=== PATIENT | male | born 1955 | race Caucasian/White ===

== ENCOUNTER 2019-01-02 00:55 | Emergency (ER) | payer OTHER ==
[~2019-01-02] VITALS: Ht 172.7 cm; Wt 76.4 kg
[~2019-01-02 00:55] MED LIST: ACCU MC; LAC PO; LEVEMIR SQ; LEVO750T2 PO; LISI10TA11 PO; METF-988 PO; [UNRECOGNIZED DRUG - CODE]; [UNRECOGNIZED DRUG - CODE]; [UNRECOGNIZED DRUG - CODE]
[2019-01-02 01:07] VITALS: BP 154/86
--- NOTE | 2019-01-02 01:11 | NUR ---
PT AMBULATED TO BED 6.
--- NOTE | 2019-01-02 01:17 | NUR ---
PT PRESENTS TO ED WITH C/O OPEN WOUND TO RIGHT GREAT TOE, RIGHT 3RD TOE. PT STATES TOE PROBLEM HAS BEEN GOING ON FOR APPROXIMATELY 3 WEEKS. PT STATES THIS AFTERNOON HE BUMPED HIS GREAT RIGHT TOE AND TOENAIL RIPPED OFF. PT STATES HIS INGROWN TOENAIL ON GREAT TOE IS AFFECTING THIS 2ND AND 3RD TOES. TOES ARE SWOLLEN, ERYTHEMA AND OPEN WOUND NOTED TO GREAT TOE AND 3RD TOE. NO DRAINAGE PRESENT. PT DENIES PAIN AT THIS TIME. HX DM
[2019-01-02] MEDS ORDERED: NACL 0.9% 1,000 ML IV ONE (01:30)
[2019-01-02 02:14] LABS: BASOPHILS % (AUTO) 0.5 % (0.0-2.0); EOSINOPHILS # (AUTO) 0.1 K/uL (0-0.4); EOSINOPHILS % (AUTO) 2.2 % (0.0-4.0); HEMOGLOBIN 12.7 g/dL (12.0-18.0); LYMPHOCYTES # (AUTO) 1.6 K/uL (2.0-11.5); LYMPHOCYTES % (AUTO) 24.9 % (20.5-51.1); MEAN CORPUSCULAR HEMOGLOBIN 29 pg (27-31); MEAN CORPUSCULAR HGB CONC 34 g/dL (33-37); MEAN CORPUSCULAR VOLUME 85.6 fL (80-94); MONOCYTES # (AUTO) 0.5 K/uL (0.8-1.0); MONOCYTES % (AUTO) 8.6 % (1.7-9.3); NEUTROPHILS % (AUTO) 63.8 % (42.2-75.2); PLATELET COUNT (AUTO) 262 K/uL (140-450); RED BLOOD CELL COUNT(AUTO) 4.44 MIL/uL (4.20-6.10); WHITE BLOOD COUNT (AUTO) 6.2 K/uL (4.8-10.8)
[2019-01-02 02:32] LABS: ALBUMIN 2.6 g/dL (3.4-5.0); ANION GAP 10.7 (8-16); CARBON DIOXIDE 27.6 mmol/L (21-32); CREATININE 1.1 mg/dL (0.7-1.3); POTASSIUM 4.3 mmol/L (3.5-5.1); TOTAL BILIRUBIN 0.3 mg/dL (0.0-1.0)
--- NOTE | 2019-01-02 02:51 | NUR ---
CULTURE SWAB COLLECTED FROM RIGHT GREAT TOE, AWAITING LAB BROKERAGE MANAGER.
[2019-01-02] MEDS ORDERED: INSULIN REGULAR, HUMAN 100 UNIT/ML VIAL IVP ONE (03:00)
[2019-01-02] MEDS ORDERED: PIPERACILLIN/TAZOBACTAM 3.375 GM in DEXTROSE 5% 50 ML IV ONE (03:00)
[2019-01-02] MEDS ORDERED: PIPERACILLIN/TAZOBACTAM 3.375 GM VIAL IV ONE (03:15)
[2019-01-02] MEDS ORDERED: NACL 0.9% 1,000 ML IV SCH (03:44)
[2019-01-02] MEDS ORDERED: ACETAMINOPHEN 325 MG TAB PO PRN (03:45)
[2019-01-02] MEDS ORDERED: VANCOMYCIN PER PHARMACY MC PRN (03:45)
[2019-01-02] MEDS ORDERED: ONDANSETRON 4 MG/2 ML VIAL IVP PRN (03:45)
[2019-01-02] MEDS ORDERED: HYDROcodone/APAP 7.5/325 MG 1 TAB PO PRN (03:45)
[2019-01-02 04:09] LABS: PROTHROMBIN TIME 10.1 secs (10.8-13.4)
[2019-01-02] MEDS ORDERED: VANCOMYCIN 1GM/DEXT 5% PREMIX 200 ML IV ONE (04:10)
[2019-01-02] MEDS ORDERED: BACITRACIN OINT 15000 UNITS/30 GM TUBE TP STA (04:20)
[2019-01-02] MEDS ORDERED: VANCOMYCIN 1,000 MG VIAL ONE (04:26)
[2019-01-02 04:36] LABS: FREE T4 (FREE THYROXINE) 1.04 ng/dL (0.76-1.46); MAGNESIUM 2.3 mg/dL (1.8-2.4); PHOSPHORUS 3.1 mg/dL (2.5-4.9); THYROID STIMULATING HORMONE 1.08 uIU/mL (0.34-3.74)
--- NOTE | 2019-01-02 04:48 | NUR ---
PT LEFT AMA. Addendum: 01/05/19 at 0352 by Cabrera May RN PT LEFT FROM ED. PT NEVER ARRIVED ON THE FLOOR.
[2019-01-02] MEDS ORDERED: BACITRACIN OINT 15000 UNITS/30 GM TUBE TP SCH (04:50)
--- NOTE | 2019-01-02 04:52 | NUR ---
PT WOUND COVERED WITH NON ADHERENT DRESSING AND COFLEX TAPE. +CSM
--- NOTE | 2019-01-02 04:52 | NUR ---
BACITRACIN APPLIED TO AFFECTED PHALANAGES, NON ADHERENT DRESSING AND COFLEX. ACTIVE ROM. PEDIAL PULSE WNL. PT STATES 0/10 PAIN AT THIS TIME.
[2019-01-02] MEDS ORDERED: BACITRACIN OINT 500 UNITS/GM PKT TP ONE (04:54)
--- NOTE | 2019-01-02 04:55 | NUR ---
Patient discharged with v/s stable. Patient acting appropriatly, re-states he does not want to stay and wants to go home, states 0/10 pain at this time. Blood sugar 92 at this time. IV d/c PRESSURE AND BANDAGE APPLIED;TIP INTACT;BLEEDING CONTROLLED; SIGHT BENIGH. Written and verbal after care instructions given and explained. Patient alert, oriented and verbalized understanding of instructions. Ambulatory with steady gait. All questions addressed prior to discharge. ID band removed. Patient advised to follow up with PMD. Rx of Metformin, and Keflex given. Patient educated on indication of medication including possible reaction and side effects. Opportunity to ask questions provided and answered.
[2019-01-02 05:09] VITALS: BP 134/68
[2019-01-02] MEDS ORDERED: DOCUSATE SODIUM 100 MG GELCAP PO SCH (09:00)
== END 2019-01-02 04:39 | disposition left against medical advice (07) ==
LOC: MED 00:55 → UNDOADMIN 03:55 → MTU 03:55 → UNDODISIN 04:48
DX: E11.622 Type 2 diabetes mellitus with other skin ulcer (principal); L97.818 Non-pressure chronic ulcer of other part of right lower leg with other specified severity; I10 Essential (primary) hypertension; Z87.442 Personal history of urinary calculi; Z79.84 Long term (current) use of oral hypoglycemic drugs
CPT/HCPCS: 36415; 73660; 80053; 82150; 83036; 83605; 83690; 83735; 83880; 84100; 84439; 84443; 84484; 85025; 85610; 85651; 85730; 86140; 87040; 87070; 96365; 96375; 99284; J1815; J2543; J3370; J7030; Q0092

== ENCOUNTER 2019-04-17 00:42 | Inpatient (IN) | payer OTHER ==
[~2019-04-17] VITALS: Ht 172.7 cm; Wt 78.9 kg
[~2019-04-17 00:42] MED LIST changes: -ACCU MC; -LAC PO; -LEVEMIR SQ; -LEVO750T2 PO; -LISI10TA11 PO; -[UNRECOGNIZED DRUG - CODE]; -[UNRECOGNIZED DRUG - CODE]; -[UNRECOGNIZED DRUG - CODE]
[2019-04-17 00:48] VITALS: BP 170/90
--- NOTE | 2019-04-17 00:51 | NUR ---
TO LOBBY A/W BED AMBULATORY
--- NOTE | 2019-04-17 01:53 | NUR ---
PT TAKEN TO BED 6
--- NOTE | 2019-04-17 02:23 | NUR ---
63 YO M BIB SELF PRESENTS TO ED C/O DIABETIC ULCER TO TOES ON RIGHT FOOT. PT STATES WOUNDS STARTED TO APPEAR ABOUT X 1 WEEK AGO. PT STATES HE NOTICED FOULD ODOR AND WHITE DRAINAGE FROM FOOT STARTING TODAY. FIRST THREE DIGITS TO RIGHT FOOT HAVE NECROTIC TISSUE. RIGHT ANKLE AND FOOT APPEARS RED WITH MODERATE SWELLING. NO TOENAIL NOTED TO 2ND AND 3RD DIGIT. PT DENIES PAIN AND STATES HE HAS NEUROPATHY SO HE HAS LITTLE SENSATION IN HIS TOES. HE DOES ADMIT TO EXPERIENCING SPASMS THAT COME AND GO. PT DENIES FEVER, CHILLS BUT STATES HE WAKES UP DRENCHED IN SWEAT IN THE MORNING. DENIES NVD. -- PT AWAKE, ALERT, CALM, COOPERATIVE. ANSWERS QUESTIONS APPROPRIATELY. BEHAVIOR AGE APPROPRIATE. -- SKIN PINK, WARM, DRY. BREATHING EVEN, UNLABORED. PMH-- DIABETES RX-- METFORMIN
--- NOTE | 2019-04-17 02:28 | NUR ---
X-Ray at bedside.
--- NOTE | 2019-04-17 02:35 | NUR ---
LAB AT BEDSIDE.
[2019-04-17] MEDS ORDERED: METF500T PO (02:55)
[2019-04-17 02:56] LABS: ANION GAP 11.2 (8-16); CARBON DIOXIDE 29.2 mmol/L (21-32); CREATININE 1.3 mg/dL (0.7-1.3); POTASSIUM 4.4 mmol/L (3.5-5.1)
[2019-04-17 03:02] LABS: ALBUMIN 2.8 g/dL (3.4-5.0); TOTAL BILIRUBIN 0.5 mg/dL (0.0-1.0)
[2019-04-17 03:20] LABS: BASOPHILS % (AUTO) 0.4 % (0.0-2.0); EOSINOPHILS # (AUTO) 0.1 K/uL (0-0.4); EOSINOPHILS % (AUTO) 1.6 % (0.0-4.0); HEMATOCRIT 41.4 % (36-52); HEMOGLOBIN 13.6 g/dL (12.0-18.0); LYMPHOCYTES # (AUTO) 1.2 K/uL (2.0-11.5); LYMPHOCYTES % (AUTO) 16.7 % (20.5-51.1); MEAN CORPUSCULAR HEMOGLOBIN 28 pg (27-31); MEAN CORPUSCULAR HGB CONC 33 g/dL (33-37); MEAN CORPUSCULAR VOLUME 86.2 fL (80-94); MONOCYTES # (AUTO) 0.7 K/uL (0.8-1.0); MONOCYTES % (AUTO) 9.7 % (1.7-9.3); NEUTROPHILS % (AUTO) 71.6 % (42.2-75.2); PLATELET COUNT (AUTO) 279 K/uL (140-450); RED CELL DISTRIBUTION WIDTH 13.8 % (11.6-13.7); WHITE BLOOD COUNT (AUTO) 6.9 K/uL (4.8-10.8)
[2019-04-17] MEDS ORDERED: VANCOMYCIN 1,000 MG in DEXTROSE 5% 250 ML IV ONE (03:20)
[2019-04-17] MEDS ORDERED: VANCOMYCIN 1,000 MG VIAL ONE (03:30)
--- NOTE | 2019-04-17 03:30 | NUR ---
Patient appears to be resting comfortably in bed. Vital Signs within normal limits. Respirations even and unlabored. Addendum: 04/17/19 at 0522 by MED VANCOMYCIN INFUSING. NADR AT THIS TIME.
[2019-04-17] MEDS ORDERED: INSULIN REGULAR, HUMAN 100 UNIT/ML VIAL SUBQ ONE (04:00)
[2019-04-17] MEDS ORDERED: DEXT 5% /NACL 0.9% 1,000 ML IV SCH (04:23)
[2019-04-17] MEDS ORDERED: ONDANSETRON 4 MG/2 ML VIAL IM/IVP PRN (04:25)
[2019-04-17] MEDS ORDERED: ZOLPIDEM 5 MG TAB PO PRN (04:25)
[2019-04-17] MEDS ORDERED: ACETAMINOPHEN 325 MG TAB PO PRN (04:25)
[2019-04-17] MEDS ORDERED: LORazepam 2 MG/ML VIAL IM/IVP PRN (04:25)
[2019-04-17] MEDS ORDERED: MORPHINE SULFATE 2 MG/ML SYR IVP PRN (04:25)
[2019-04-17] MEDS ORDERED: DOCUSATE SODIUM 100 MG GELCAP PO PRN (04:25)
[2019-04-17] MEDS ORDERED: HYDROcodone/APAP 5/325 MG 1 TAB TAB PO PRN (04:25)
[2019-04-17] MEDS ORDERED: DEXTROSE 50% 50 ML SYR IVP PRN (04:25)
--- NOTE | 2019-04-17 04:50 | NUR ---
PT'S BP HIGH AT 177/82; INFORMED .DR Fermín HEWITT. SHE SAID SHE WILL ORDER LISINOPRIL FOR 0500AM
--- NOTE | 2019-04-17 04:53 | NUR ---
RECEIVED PT FROM ER VIA CHARISSE PT ABLE TO WALK ON HIS AFFECTED LEFT FOOT BUT W/ UNSTEADY GAIT. WITH LEFT HAND G 20, PATENT. WITH DIABETIC FOOT ULCER ON LEFT FOOT 1ST, 2ND AND 3RD TOE AFFECTED. PICTURE TAKEN AT ER. POC DISCUSSED. PT ORIENTED TO UNIT.CALL LIGHT W/IN REACH
--- NOTE | 2019-04-17 04:55 | NUR ---
Patient will be admitted to care of Dr. Anglin. Admited to TELE. Will go to room 111A. Belongings list completed. Report to BILLY Meade.
[2019-04-17] MEDS ORDERED: VANCOMYCIN PER PHARMACY MC PRN (05:00)
--- NOTE | 2019-04-17 05:00 | NUR ---
PT REFUSED TO BE CHANGED TO A YELLOW GOWN; EXPLAINED THE RISKS AND BENEFITS PT ACKNOWLEDGED . BUT WILL ENDORSE TO NEXT SHIFT TO TRY TO PUT HIM IN A YELLOW GOWN.
--- NOTE | 2019-04-17 05:00 | NUR ---
PT WANTS TO GO AMA BUT DR. HEWITT WENT TO THE PT AND TALKED TO HI, PER PT HE WANTS TO SEE HIS FOOT AND ANKLE SPECIALIST. DR. HEWITT EXPLAINED NEED TO HAVE IV ANTIBIOTICS AND BONE SCAN. FOR NOW PT STAYS ONLY UNTIL THE BONE SCAN.
--- NOTE | 2019-04-17 05:10 | NUR ---
INFORMED DR AU THAT PT REFUSED TO TAKE BP MEDICATION LISINOPRIL.WILL ENDORSE TO THE NEXT SHIFT .PT GIVEN EXPLANATION OF THE RISKS AND BENEFITS OF TAKING NOT TAKING THE BP MED. PT ACKNOWLEGED.
[2019-04-17] MEDS: LISINOPRIL 20 MG TAB PO SCH ×2 (05:20→09:25)
--- NOTE | 2019-04-17 06:11 | NUR ---
RETUIRNED THE LISINOPRIL AT THE [facility] NOW WILL ENDORSE TO NEXT SHIFT TO GIVE IT
--- NOTE | 2019-04-17 06:13 | NUR ---
PT BLOOD SUGAR TAKEN 248 WILL GIVE INSULIN PER PROTOCOL
[2019-04-17] MEDS: BLOOD GLUCOSE MONITORING 1 DEV DEV FS SCH ×4 (06:14→20:56)
[2019-04-17] MEDS: INSULIN LISPRO SLIDING SCALE 100 UNITS/ML VIAL SUBQ PRN ×3 (06:16→20:58)
--- NOTE | 2019-04-17 07:20 | NUR ---
Report received from night nurse, Pt awake a/o appropriate and able to communicate needs. Pt denies pain, denies n/v. Pt states he has hx of tingling to fingertips and decreased sensation to toes. Pt R toe has healed diabetic ulcer to R great toe and active diabetic ulcers to L toes, open to air. Call light and personal items within reach, safety and fall precautions in place, will continue to monitor.
[2019-04-17 07:23] LABS: PROTHROMBIN TIME 9.7 secs (10.8-13.4)
[2019-04-17 08:00] VITALS: BP 156/89
--- NOTE | 2019-04-17 08:30 | NUR ---
Spoke w nuclear med tech, per tech she will be here at 1430 to do bone scan.
--- NOTE | 2019-04-17 08:58 | NUR ---
PATIENT HAS BEEN SCREENED AND CATEGORIZED HIGH NUTRITION RISK. PATIENT WILL BE SEEN WITHIN 1-2 DAYS OF ADMISSION. 04/17/19-04/18/[address]
[2019-04-17] MEDS: LACTOBACILLUS RHAMNOSUS GG 1 EACH CAP PO SCH (09:25)
[2019-04-17 09:57] LABS: CHOL/HDL RATIO 3.1 (1-4.5); PHOSPHORUS 3.5 mg/dL (2.5-4.9); THYROID STIMULATING HORMONE 1.49 uIU/mL (0.34-3.74)
--- NOTE | 2019-04-17 10:00 | NUR ---
Pt remains a/o able to communicate needs and appropriate, visiting w family at bedside. Pt appears comfortable, denies pain, call light and personal items within reach, safety and fall precautions in place, no s/s of acute distress noted at this time, will continue to monitor.
--- NOTE | 2019-04-17 11:00 | NUR ---
PT. WAS SEEN BY WOUND CARE NURSE WITH LEFT FOOT FIRST 3 TOES CLEANSE AND DRESSED WITH BETADINE SOLUTION. PER PRIMARY RN PT. WAS SEEN BY PODIATRY THIS MORNING AND WILL PLAN FOR FURTHER TREATMENT.
--- NOTE | 2019-04-17 11:43 | NUR ---
Pt remains a/o able to communicate needs and appropriate, w family at bedside. Pt provided informed consent for bedside incision and drainage to L foot diabetic ulcers. Dr Garcia present at bedside and began Incision and drainage to L foot. Pt appears comfortable, denies pain, will continue to monitor.
--- NOTE | 2019-04-17 12:55 | NUR ---
sliding scale insulin held because Pt remains NPO.
--- NOTE | 2019-04-17 13:30 | NUR ---
Pt resting in bed at this time, appears comfortable, call light and personal items within reach, safety and fall precautions in place, no s/s of acute distress noted at this time, will continue to monitor.
--- NOTE | 2019-04-17 15:30 | NUR ---
Pt sleeping at this time, appears comfortable, call light and personal items within reach, safety and fall precautions in place, no s/s of acute distress noted at this time, will continue to monitor.
[2019-04-17] MEDS: VANCOMYCIN 750 MG in DEXTROSE 5% 250 ML IV SCH (15:31)
--- NOTE | 2019-04-17 15:35 | NUR ---
Spoke w Lauren in Radiology to follow up with Nuclear medicine time; waiting for time verification, charge nurse aware.
[2019-04-17 16:00] VITALS: BP 169/89
--- NOTE | 2019-04-17 16:00 | NUR ---
Pt remains a/o appropriate for age and able to communicate needs. Notified Pt per nuclear medicine, the exam will be done at 5:30 pm. Reinforced nwb education. Pt denies pain, dressing to L foot remains clean dry and intact, call light and personal items within reach, safety and fall precautions in place, no s/s of acute distress noted at this time, will continue to monitor.
--- NOTE | 2019-04-17 16:30 | NUR ---
Notified Dr Carrion of results to venous ultra sound and doppler, followed up on Pt diet; orders to be written.
--- NOTE | 2019-04-17 18:10 | NUR ---
Pt remains a/o appropriate, transported off unit to nuclear medicine study by w/c, non weight bearing maintained. Pt boot remains at bedside. No s/s of acute distress noted at this time.
--- NOTE | 2019-04-17 18:55 | NUR ---
Pt returned from nuclear med, remains a/o able to communicate need. denies pain at this time. call light and personal items within reach, safety and fall precautions in place, will continue to monitor.
--- NOTE | 2019-04-17 19:14 | NUR ---
Report endorsed to oncoming nurse. Pt sleeping at this time, appears comfortable, call light and personal items within reach, safety and fall precautions in place.
--- NOTE | 2019-04-17 19:30 | NUR ---
RECEIVED PT FROM AENL RN PT IS AAOX4 S/P LEFT IAND D LEFT FOOT IV ON LEFT ARM INFUSING WELL, LEFT FOOT ON PILLOW ELEVATION DENIES ANY PAIN AT THIS TIME INITIAL ASSESSMENT DONE
[2019-04-17 20:00] VITALS: BP 112/69
--- NOTE | 2019-04-17 21:00 | NUR ---
BLOOD SUGAR TEST 153 COVERAGE WITH 2 UNITS SUBQ HUMALOG FOLLOW PROTOCOL
[2019-04-17] MEDS: ATORVASTATIN 20 MG TAB PO SCH (21:24)
--- NOTE | 2019-04-17 23:10 | NUR ---
CRITICAL RAD WAS REPORTED TO DR SHARPE REPORT FROM NUCLEAR MEDICINE FINDING CONSISTENT WITH ACUTE OSTEOMYELITIS OF THE LEFT FIRST DISTAL PHALANX
[2019-04-18] MEDS: PIPERACILLIN/TAZOBACTAM 3.375 GM in DEXTROSE 5% 50 ML IV SCH ×5 (00:25→23:38)
[2019-04-18] MEDS ORDERED: PIPERACILLIN/TAZOBACTAM 3.375 GM VIAL IV ONE ×2 (00:26→05:26)
--- NOTE | 2019-04-18 02:00 | NUR ---
PT SLEEPING WELL NOT SIGNS OF PAIN NOTED , LEFT FOOT ON PILLOW ELEVATION
[2019-04-18] MEDS: VANCOMYCIN 750 MG in DEXTROSE 5% 250 ML IV SCH ×3 (02:40→23:52)
--- NOTE | 2019-04-18 04:00 | NUR ---
PT RESTING ON BED LEFT FOOT ON PILLOW ELEVATION, IV ON LEFT HAND INGUSING WELL NOT DISTRESS NOTED
[2019-04-18] MEDS: BLOOD GLUCOSE MONITORING 1 DEV DEV FS SCH ×4 (06:09→20:59)
[2019-04-18] MEDS: INSULIN LISPRO SLIDING SCALE 100 UNITS/ML VIAL SUBQ PRN ×3 (06:13→21:00)
--- NOTE | 2019-04-18 06:28 | NUR ---
BLOOD SUGAR TEST 351 COVERAGE WITH 10 UNITS SUBQ HUMALOG FOLLOW PROTOCOL , AND PT WILL BE MONITORING EN HALF HOUR
--- NOTE | 2019-04-18 06:31 | NUR ---
PT WILL BE ENDORSED TO DAY SHIFT NURSE FOR CONTINUITY OF CARE [id number]
[2019-04-18 07:00] LABS: ANION GAP 8.5 (8-16); CARBON DIOXIDE 29.7 mmol/L (21-32); CREATININE 1.3 mg/dL (0.7-1.3); POTASSIUM 4.2 mmol/L (3.5-5.1)
--- NOTE | 2019-04-18 07:02 | NUR ---
BLOOD SUGAR TEST MONITORING HALF HOUR AFTER GIVEN 10 UNITS SUBQ HUMALOG BS WAS [address] EVANS
[2019-04-18 07:13] LABS: BASOPHILS % (AUTO) 0.3 % (0.0-2.0); EOSINOPHILS # (AUTO) 0.2 K/uL (0-0.4); EOSINOPHILS % (AUTO) 2.2 % (0.0-4.0); HEMATOCRIT 36.1 % (36-52); HEMOGLOBIN 11.8 g/dL (12.0-18.0); LYMPHOCYTES # (AUTO) 1.3 K/uL (2.0-11.5); LYMPHOCYTES % (AUTO) 18.9 % (20.5-51.1); MEAN CORPUSCULAR HEMOGLOBIN 28 pg (27-31); MEAN CORPUSCULAR HGB CONC 33 g/dL (33-37); MEAN CORPUSCULAR VOLUME 86.3 fL (80-94); MONOCYTES # (AUTO) 0.6 K/uL (0.8-1.0); MONOCYTES % (AUTO) 9.5 % (1.7-9.3); NEUTROPHILS # (AUTO) 4.7 K/uL (1.8-7.7); NEUTROPHILS % (AUTO) 69.1 % (42.2-75.2); PLATELET COUNT (AUTO) 247 K/uL (140-450); RED BLOOD CELL COUNT(AUTO) 4.18 MIL/uL (4.20-6.10); RED CELL DISTRIBUTION WIDTH 13.4 % (11.6-13.7); WHITE BLOOD COUNT (AUTO) 6.8 K/uL (4.8-10.8)
[2019-04-18 07:14] LABS: MAGNESIUM 1.8 mg/dL (1.8-2.4); PHOSPHORUS 3.9 mg/dL (2.5-4.9)
--- NOTE | 2019-04-18 07:28 | NUR ---
GOT BEDSIDE REPORT FROM DECK ENGINEER NURSE. PATIENT ON MED SURGE FLOOR WITH STANDARD PRECAUTIONS IN PLACE. PATIENT AAOX4, ON ROOM AIR, NO DISTRESS NOTED. PATIENT AMBULATORY WITH SHOE FOR L FOOT AT BEDSIDE, L FOOT/TOES WRAPPED IN GAUZE AND KERLIX WRAP. DIABETIC FOOT ULCERS ON L FOOT 1ST, 2ND, AND 3RD DIGIT. BED IN LOW POSITION, CALL LIGHT WITHIN REACH, SIDE RAILS X2 UP
[2019-04-18 08:00] VITALS: BP 122/67
[2019-04-18] MEDS ORDERED: RIVAROXABAN 15 MG TAB PO SCH (09:00)
[2019-04-18 09:20] LABS: T4 (THYROXINE) 5.7 ug/dL (4.5-12.0)
[2019-04-18 09:35] LABS: BENZODIAZEPINE, URINE NEG. ng/mL (NEG <=200); CANNABINOID, URINE NEG. ng/mL (NEG <=50); COCAINE, URINE NEG. ng/mL (NEG <=300); OPIATE, URINE NEG. ng/mL (NEG <=2000); PHENCYCLIDINE SCREEN,URINE NEG. ng/mL (NEG <=25)
[2019-04-18 09:38] LABS: BILIRUBIN,URINE NEGATIVE (NEGATIVE); BLOOD, URINE 1+ (NEGATIVE); COLOR,URINE YELLOW (YELLOW); LEUKOCYTE ESTERASE ,URINE NEGATIVE (NEGATIVE); NITRITE, URINE NEGATIVE (NEGATIVE); UGLUCOSE 3+ (NEGATIVE)
[2019-04-18 09:40] LABS: BARBITURATE, URINE NEG. ng/ml (NEG <=200)
[2019-04-18] MEDS: LISINOPRIL 20 MG TAB PO SCH (09:55)
[2019-04-18] MEDS: ASPIRIN 81 MG TAB.CHEW PO SCH (09:55)
[2019-04-18] MEDS: LACTOBACILLUS RHAMNOSUS GG 1 EACH CAP PO SCH (09:55)
--- NOTE | 2019-04-18 09:59 | NUR ---
ADMINISTERED SCHEDULED MEDS. PATIENT TOLERATED WELL
[2019-04-18] MEDS: NACL 0.9% 1,000 ML IV SCH ×2 (10:07→23:11)
[2019-04-18 10:09] LABS: APPEARANCE,URINE CLEAR (CLEAR)
[2019-04-18 10:10] LABS: RBC,URINE 0-5 /HPF (0-5)
[2019-04-18] MEDS: metFORMIN 850 MG TAB PO SCH ×2 (12:00→17:34)
--- NOTE | 2019-04-18 12:37 | NUR ---
PATIENT WATCHING TV, ON ROOM AIR, NO DISTRESS NOTED
--- NOTE | 2019-04-18 13:38 | NUR ---
CALLED [facility] [phone] AND FAXED ALL PAPERWORK TO ALLIED FAX TO # [phone] FOR SNF PLACEMENT
--- NOTE | 2019-04-18 14:37 | NUR ---
PATIENT USING URINAL, ON ROOM AIR, NO DISTRESS NOTED
--- NOTE | 2019-04-18 15:00 | NUR ---
04/18/19 RD INITIAL ASSESSMENT COMPLETED PLEASE REFER TO NUTRITION ASSESSMENT UNDER CARE ACTIVITY FOR ESTIMATED NUTRITIONAL NEEDS. 1. CONTINUE CCHO 60 GM DIET TOLERATED 2. DOUBLE PORTIONS OF PROTEIN WILL BE PROVIDED FOR EACH MEAL 3. RD PROVIDED DIABETES NUTRITION EDUCATION ON A CONSISTENT CARBOHYDRATE DIET 4. RD TO FOLLOW-UP 5-7 DAYS, LOW RISK PHOEBE [facility]ERETT, RD
--- NOTE | 2019-04-18 15:19 | NUR ---
RECEIVED A CALL FROM [facility] JENIFER [phone] WILL FAX AND E MAIL THE LIST OF CONTRACTED FACILITY.
--- NOTE | 2019-04-18 15:45 | NUR ---
CHANGED DRESSING ON LEFT FOOT ORDERED. PATIENT TOLERATED WELL, HE STATED HE CANNOT FEEL HIS FOOT
[2019-04-18 16:00] VITALS: BP 167/75
--- NOTE | 2019-04-18 19:28 | NUR ---
GAVE BEDSIDE REPORT TO MASTER COSMETOLOGIST NURSE. PATIENT ENDORSED IN STABLE CONDITION
--- NOTE | 2019-04-18 19:30 | NUR ---
RECEIVED PT FROM PATO RN PT AAOX4 ON LEFT FOOT DRESSING DRY AND INTACT ON PILLOW ELEVATION IV ON LEFT HAND INFUSING WELL INITIAL ASSESSMENT DONE
[2019-04-18] MEDS: ATORVASTATIN 20 MG TAB PO SCH (21:17)
--- NOTE | 2019-04-18 21:30 | NUR ---
BLOOD SUGAR [id number] COVERAGE WITH4 UNITS SUBQ HUMALOG FOLLOW PROTOCOL
--- NOTE | 2019-04-18 22:30 | NUR ---
PICC LINE NURSE INSERT PICC LINE ON RT UPPER ARM
[2019-04-19] VITALS: BP 118/67
--- NOTE | 2019-04-19 00:17 | NUR ---
PT SLEEPING WELL NOT DISTESS NOTED NPO FOR PROCEDURE THIS AM
--- NOTE | 2019-04-19 03:00 | NUR ---
PT SLEEPING WELL NOT SIGNS OF PAIN NOTED, PICC LINE ON RT UPPER ARM AND HL ON LEFT HAND PATENT
[2019-04-19] MEDS: PIPERACILLIN/TAZOBACTAM 3.375 GM in DEXTROSE 5% 50 ML IV SCH ×4 (05:32→23:32)
--- NOTE | 2019-04-19 05:45 | NUR ---
SURGICAL LIST READY, CONSENT SIGNED FOR SURGERY THIS AM
[2019-04-19] MEDS: BLOOD GLUCOSE MONITORING 1 DEV DEV FS SCH ×4 (05:47→20:49)
--- NOTE | 2019-04-19 06:01 | NUR ---
BLOOD SUGAR TEST 258 NOT COVERAGE AT THIS TIME PT NPO AND HE IS GOING TO SURGERY THIS AM/,
--- NOTE | 2019-04-19 06:41 | NUR ---
PT WILLBE ENDORSED TO DAY SHIFT NURSE FOR CONTINUE OF CARE
--- NOTE | 2019-04-19 07:15 | NUR ---
RECEIVED REPORT FROM REPLENISHMENT MERCHANDISING ASSOCIATE NURSE CHARY FOR CONTINUITY OF CARE. PT IN STABLE CONDITION. RESPIRATIONS EVEN AND UNLABORED, ROOM AIR. IV/PICC LINE INTACT AND PATENT. SAFETY MEASURES IN PLACE. BED IN LOW POSITION. BED ALARM ON. CALL LIGHT AT BEDSIDE. WILL CONTINUE TO MONITOR.
[2019-04-19 07:30] LABS: BASOPHILS % (AUTO) 0.3 % (0.0-2.0); EOSINOPHILS # (AUTO) 0.2 K/uL (0-0.4); EOSINOPHILS % (AUTO) 2.7 % (0.0-4.0); HEMOGLOBIN 12.4 g/dL (12.0-18.0); LYMPHOCYTES % (AUTO) 16.8 % (20.5-51.1); MEAN CORPUSCULAR HEMOGLOBIN 29 pg (27-31); MEAN CORPUSCULAR HGB CONC 33 g/dL (33-37); MEAN CORPUSCULAR VOLUME 85.6 fL (80-94); MONOCYTES # (AUTO) 0.5 K/uL (0.8-1.0); MONOCYTES % (AUTO) 7.6 % (1.7-9.3); NEUTROPHILS # (AUTO) 4.4 K/uL (1.8-7.7); NEUTROPHILS % (AUTO) 72.6 % (42.2-75.2); PLATELET COUNT (AUTO) 267 K/uL (140-450); RED BLOOD CELL COUNT(AUTO) 4.33 MIL/uL (4.20-6.10); RED CELL DISTRIBUTION WIDTH 13.6 % (11.6-13.7); WHITE BLOOD COUNT (AUTO) 6.1 K/uL (4.8-10.8)
[2019-04-19 07:37] LABS: CARBON DIOXIDE 29.1 mmol/L (21-32); CREATININE 1.1 mg/dL (0.7-1.3); POTASSIUM 4.1 mmol/L (3.5-5.1)
[2019-04-19 08:00] VITALS: BP 163/84
[2019-04-19] MEDS: metFORMIN 850 MG TAB PO SCH (08:00)
[2019-04-19] MEDS: VANCOMYCIN 750 MG in DEXTROSE 5% 250 ML IV SCH ×3 (08:24→23:32)
[2019-04-19] MEDS: INSULIN LANTUS 100 UNITS/ML 10 ML VIAL SUBQ SCH ×2 (09:00→12:04)
[2019-04-19] MEDS: ASPIRIN 81 MG TAB.CHEW PO SCH (09:00)
[2019-04-19] MEDS ORDERED: LACTOBACILLUS RHAMNOSUS GG 1 EACH CAP PO SCH (09:00)
[2019-04-19] MEDS: LISINOPRIL 20 MG TAB PO SCH (09:00)
[2019-04-19] MEDS: LACTOBACILLUS RHAMNOSUS GG 1 EACH CAP PO SCH (09:00)
--- NOTE | 2019-04-19 09:18 | NUR ---
HELD HEPARIN AND INSULIN LANTUS DUE TO SURGERY.
[2019-04-19] MEDS: CHLORHEXADINE GLUC 2% CLOTH TP SCH (09:33)
--- NOTE | 2019-04-19 11:30 | NUR ---
PT WANTED TO PUT ON OWN SHIRT AT THIS TIME. FAMILY AT BEDSIDE. PT IN STABLE CONDITION. BED IN LOW POSITION. CALL LIGHT AT BEDSIDE. WILL CONTINUE TO MONITOR.
[2019-04-19] MEDS: NACL 0.9% 1,000 ML IV SCH ×2 (12:45→21:32)
--- NOTE | 2019-04-19 12:52 | NUR ---
PODIATRY DR. HENRY AT BEDSIDE AT THIS TIME. PT IN STABLE CONDITION.
--- NOTE | 2019-04-19 15:07 | NUR ---
PT ASSISTED TO RESTROOM AT THIS TIME. PT TOLERATED WELL. WILL CONTINUE TO MONITOR.
--- NOTE | 2019-04-19 16:13 | NUR ---
SW attempted to conduct assessment with patient. Patient was asleep and would not respond to verbal cues. SW will follow up.
--- NOTE | 2019-04-19 17:50 | NUR ---
GAVE DR. HENRY (PODIATRY),PT DAUGHTERS PHONE NUMBER ([phone]) TO CALL PER REQUEST.
[2019-04-19] MEDS: INSULIN LISPRO SLIDING SCALE 100 UNITS/ML VIAL SUBQ PRN ×2 (17:57→20:51)
--- NOTE | 2019-04-19 19:25 | NUR ---
GAVE REPORT TO AIR BRAKE WORKER NURSE VASQUEZ FOR CONTINUITY OF CARE. PT IN STABLE CONDITION.
--- NOTE | 2019-04-19 19:30 | NUR ---
RECEIVED BEDSIDE REPORT FROM DAY RN. PT IS AAOX4. ON ROOM AIR. IV ON L HAND 22G IVF INFUSING PER ORDERS. PICC DOUBLE LUMEN ON R UPPER ARM SL. L FOOT IS WRAPPED DRESSING CHANGE DONE AT 1800 DRESSING IS C/D/I. CONSENT IN CHART FOR TOE AMPUTATION TOMORROW 04/20 ORDER FOR NPO AFTER MIDNIGHT PT IS AWARE SIGN ON DOOR. URINAL AND ALL BELONGING BY BEDSIDE TABLE. PLAN OF CARE DISCUSSED WITH PT. CALL LIGHT IS WITHIN REACH. WILL CONTINUE TO MONITOR.
[2019-04-19] MEDS: ATORVASTATIN 20 MG TAB PO SCH (20:50)
--- NOTE | 2019-04-19 20:50 | NUR ---
SCHEDULED MEDICATION GIVEN HEPARIN HELD D/T SURGERY TOMORROW. INSULIN 4 UNITS BLOOD SUGAR 221. PT REQUEST SANDWICH BEFORE NPO SANDWICH GIVEN. CALL LIGHT IS WITHIN REACH.
[2019-04-19] MEDS ORDERED: metFORMIN 850 MG TAB PO SCH (21:00)
--- NOTE | 2019-04-19 21:00 | NUR ---
PT EXPRESSED HE DOES NOT WANT SURGERY ANYMORE AND IS THINKING ABOUT GOING HOME TONIGHT. EXPLAINED TO PATIENT RISK OF NOT HAVING SURGERY. PAGED DR MENDEZ TO SPEAK WITH PT. DOCTOR NOW IN ROOM SPEAKING WITH PATIENT. WILL CONTINUE TO MONITOR.
--- NOTE | 2019-04-19 21:15 | NUR ---
IV INFILTRATED ON L HAND. IV REMOVED IV IS INTACT. IVF CONNECTED ON PICC LINE. NO S/S OF DISTRESS. CALL LIGHT IS WITHIN REACH. WILL CONTINUE TO MONITOR.
--- NOTE | 2019-04-19 23:50 | NUR ---
VITAL SIGNS ARE WITHIN NORMAL LIMITS. NO S/S OF DISTRESS. ZOSYN IS INFUSING PER ORDERS. CALL LIGHT IS WITHIN REACH.
--- NOTE | 2019-04-20 02:30 | NUR ---
PATIENT IS ASLEEP. CHEST RISE AND FALL. CALL LIGHT IS WITHIN REACH. WILL CONTINUE TO MONITOR.
--- NOTE | 2019-04-20 04:00 | NUR ---
PATIENT IS ASLEEP. CHEST RISE AND FALL. CALL LIGHT IS WITHIN REACH. WILL CONTINUE TO MONITOR.
[2019-04-20] MEDS: PIPERACILLIN/TAZOBACTAM 3.375 GM in DEXTROSE 5% 50 ML IV SCH ×4 (05:47→23:33)
[2019-04-20] MEDS: BLOOD GLUCOSE MONITORING 1 DEV DEV FS SCH ×4 (05:50→20:31)
--- NOTE | 2019-04-20 05:57 | NUR ---
ZOSYN NOW INFUSING PER ORDERS. BG 258 WILL HOLD INSULIN PT IS TO BE NPO FOR SURGERY TODAY. ALL SAFETY MEASURES ARE IN PLACE. WILL CONTINUE TO MONITOR. PT IN STABLE CONDITION
--- NOTE | 2019-04-20 07:10 | NUR ---
RECEIVED REPORT FROM CLEANING AND WASHING EQUIPMENT OPERATOR NURSE IVANA FOR CONTINUITY OF CARE. PT IN STABLE CONDITION. PICC LINE INTACT AND PATENT. RESPIRATIONS EVEN AND UNLABORED, ROOM AIR. SAFETY MEASURES IN PLACE. BED IN LOW POSITION. BED ALARM ON. CALL LIGHT AT BEDSIDE. WILL CONTINUE TO MONITOR.
[2019-04-20 07:21] LABS: ANION GAP 11.2 (8-16); BASOPHILS % (AUTO) 0.4 % (0.0-2.0); CREATININE 1.3 mg/dL (0.7-1.3); EOSINOPHILS # (AUTO) 0.1 K/uL (0-0.4); EOSINOPHILS % (AUTO) 1.5 % (0.0-4.0); HEMATOCRIT 35.9 % (36-52); HEMOGLOBIN 11.8 g/dL (12.0-18.0); LYMPHOCYTES # (AUTO) 1.2 K/uL (2.0-11.5); MEAN CORPUSCULAR HEMOGLOBIN 28 pg (27-31); MEAN CORPUSCULAR HGB CONC 33 g/dL (33-37); MONOCYTES # (AUTO) 0.6 K/uL (0.8-1.0); MONOCYTES % (AUTO) 8.1 % (1.7-9.3); NEUTROPHILS # (AUTO) 5.5 K/uL (1.8-7.7); PLATELET COUNT (AUTO) 250 K/uL (140-450); POTASSIUM 4.2 mmol/L (3.5-5.1); RED BLOOD CELL COUNT(AUTO) 4.17 MIL/uL (4.20-6.10); RED CELL DISTRIBUTION WIDTH 13.7 % (11.6-13.7); WHITE BLOOD COUNT (AUTO) 7.4 K/uL (4.8-10.8)
[2019-04-20 07:27] LABS: PHOSPHORUS 3.7 mg/dL (2.5-4.9)
[2019-04-20 08:00] VITALS: BP 165/83
[2019-04-20] MEDS ORDERED: VANCOMYCIN PER PHARMACY MC PRN (08:00)
[2019-04-20] MEDS: VANCOMYCIN 750 MG in DEXTROSE 5% 250 ML IV SCH (08:19)
[2019-04-20] MEDS: LISINOPRIL 20 MG TAB PO SCH (09:00)
[2019-04-20] MEDS: metFORMIN 500 MG TAB PO SCH ×2 (09:00→20:32)
[2019-04-20] MEDS: ASPIRIN 81 MG TAB.CHEW PO SCH (09:00)
[2019-04-20] MEDS: LACTOBACILLUS RHAMNOSUS GG 1 EACH CAP PO SCH (09:00)
[2019-04-20] MEDS: INSULIN LANTUS 100 UNITS/ML 10 ML VIAL SUBQ SCH (09:00)
--- NOTE | 2019-04-20 09:04 | NUR ---
HELD HEPARIN INJ AND LANTUS 20UNITS DUE TO 1200 SURGERY. PT IN STABLE CONDITION.
[2019-04-20] MEDS: CHLORHEXADINE GLUC 2% CLOTH TP SCH (09:35)
--- NOTE | 2019-04-20 11:35 | NUR ---
PT OFF UNIT FOR LEFT FOOT TOE, 1ST DIGIT/ PARTIAL 3RD DIGIT AMPUTATION SURGERY
[2019-04-20] MEDS ORDERED: PROPOFOL 200 MG/20 ML VIAL IV ONE (11:45)
[2019-04-20] MEDS ORDERED: SEVOFLURANE 250 ML BTL INH ONE (11:45)
[2019-04-20] MEDS ORDERED: BUPIVACAINE-MPF 0.5% 30 ML VIAL INJ ONE (11:53)
[2019-04-20] MEDS ORDERED: fentaNYL 0.05 MG/ML VIAL ONE (12:09)
[2019-04-20] MEDS ORDERED: MIDAZOLAM 2 MG/2 ML VIAL ONE (12:09)
[2019-04-20] MEDS: NACL 0.9% 1,000 ML IV SCH ×3 (12:21→20:41)
[2019-04-20] MEDS ORDERED: ONDANSETRON 4 MG/2 ML VIAL IVP PRN (12:25)
[2019-04-20] MEDS ORDERED: HYDROmorphone 1 MG/ML AMP IVP PRN (12:25)
[2019-04-20] MEDS ORDERED: diphenhydrAMINE 50 MG/ML VIAL IVP PRN (12:25)
[2019-04-20] MEDS: INSULIN LISPRO SLIDING SCALE 100 UNITS/ML VIAL SUBQ PRN ×2 (12:51→20:35)
--- NOTE | 2019-04-20 13:40 | NUR ---
PT BACK ON UNIT AFTER SURGERY. PT IN STABLE CONDITION.
--- NOTE | 2019-04-20 15:02 | NUR ---
PT SLEEPING AT THIS TIME. RESPIRATIONS EVEN AND UNLABORED. BED IN LOW POSITION. BED ALARM ON. CALL LIGHT AT BEDSIDE. FAMILY AT BEDSIDE. WILL CONTINUE TO MONITOR.
--- NOTE | 2019-04-20 15:08 | NUR ---
CALLED PATIENT INSURANCE AT [phone], LEFT MESSAGE TO JENIFER SHEPPARD AT EXT [phone]. AWAITING FOR CALL BACK.
--- NOTE | 2019-04-20 15:43 | NUR ---
RECEIVED A CALL FROM JENIFER SHEPPARD OF [facility] AT [phone], REGARDING UPDATE ON DC PLANNING. INFORMED HER THAT THE PATIENT HAD HIS AMPUTATION DONE TODAY AND THE PLAN IS TO DC PATIENT WITH HOME HEALTH FOR IV ANTIBIOTICS. AND IF THERE WILL BE ANY CHANGES, I WILL BE UPDATING HER. I PROVIDED HER WITH MY CONTACT INFORMATION IF SHE HAS ANY CONCERNS OR QUESTIONS
--- NOTE | 2019-04-20 15:51 | NUR ---
CRITICAL RESULT. VANCO 18.5. PHARMACY WILL HOLD 1600 VANCO. IS AWARE. YEMI SCHEDULED FOR 1999
--- NOTE | 2019-04-20 16:45 | NUR ---
AWAKE AND ALERT NO SOB NOTED PATIENT REFUSING TO PARTICIPATE IN THE INCENTIVE SPIROMETRY THERAPY PATIENT STATES "NO I DON'T WANT TO DO IT".
--- NOTE | 2019-04-20 17:12 | NUR ---
ASSISTED WITH BEDSIDE COMMODE. PT TOLERATED WELL.
--- NOTE | 2019-04-20 19:15 | NUR ---
GAVE REPORT TO SANE NURSE NURSE FOR CONTINUITY OF CARE. PT IN STABLE CONDITION.
--- NOTE | 2019-04-20 19:16 | NUR ---
RECEIVED REPORT FROM DAY SHIFT NURSE JENIFER-RN AT BEDSIDE. PT RESTING IN BED, AOX4, ON ROOM AIR WITH PICC RIGHT UPPER ARM RUNNING NS @75ML/HR. DISCUSSED PLAN OF CARE AND PT VERBALIZED UNDERSTANDING. NO S/S OF RESPIRATORY DISTRESS OR DISCOMFORT NOTED AT THIS TIME. S/P DEBRIDEMENT 04/17 AND AMPUTATION OF FIRST DIGIT AND PARTIAL OF THIRD DIGIT BY DR. OSORIO ON 04/20. BED IN LOWEST POSITION, BED BREAKS ON, BOTH SIDE RAILS UP AND FALL PRECAUTIONS IN PLACE. BEDSIDE TABLE AND CALL LIGHT ARE WITHIN REACH. WILL CONTINUE TO MONITOR.
[2019-04-20 20:00] VITALS: BP 150/72
--- NOTE | 2019-04-20 20:00 | NUR ---
VITAL SIGNS TAKEN AND TOLERATED WELL. BLOOD GLUCOSE 175- WILL ADMINISTER INSULIN COVERAGE. NO S/S OF RESPIRATORY DISTRESS OR DISCOMFORT NOTED AT THIS TIME. WILL CONTINUE TO MONITOR.
[2019-04-20] MEDS: VANCOMYCIN 1,000 MG in DEXTROSE 5% 250 ML IV SCH (20:31)
[2019-04-20] MEDS: ATORVASTATIN 20 MG TAB PO SCH (20:32)
--- NOTE | 2019-04-20 20:35 | NUR ---
SCHEDULED MEDICATIONS GIVEN AND TOLERATED WELL. INSULIN COVERAGE GIVEN AND TOLERATED WELL. NO S/S OF RESPIRATORY DISTRESS OR DISCOMFORT NOTED AT THIS TIME. WILL CONTINUE TO MONITOR.
--- NOTE | 2019-04-20 22:00 | NUR ---
PT SLEEPING IN BED. NO S/S OF RESPIRATORY DISTRESS OR DISCOMFORT NOTED AT THIS TIME. WILL CONTINUE TO MONITOR.
--- NOTE | 2019-04-20 23:33 | NUR ---
SCHEDULED MEDICATION ZOSYN GIVEN AND TOLERATED WELL. NO S/S OF RESPIRATORY DISTRESS OR DISCOMFORT NOTED AT THIS TIME. WILL CONTINUE TO MONITOR.
[2019-04-21] VITALS: BP 142/72
--- NOTE | 2019-04-21 | NUR ---
VITAL SIGNS TAKEN AND TOLERATED WELL. NO S/S OF RESPIRATORY DISTRESS OR DISCOMFORT NOTED AT THIS TIME. WILL CONTINUE TO MONITOR.
[2019-04-21] MEDS: NACL 0.9% 1,000 ML IV SCH ×3 (01:50→18:07)
--- NOTE | 2019-04-21 02:00 | NUR ---
PT CONTINUES SLEEPING IN BED. NO S/S OF RESPIRATORY DISTRESS OR DISCOMFORT NOTED AT THIS TIME. WILL CONTINUE TO MONITOR.
--- NOTE | 2019-04-21 04:00 | NUR ---
PT CONTINUES TO SLEEP IN BED. NO S/S OF RESPIRATORY DISTRESS OR DISCOMFORT NOTED AT THIS TIME. WILL CONTINUE TO MONITOR.
[2019-04-21] MEDS: PIPERACILLIN/TAZOBACTAM 3.375 GM in DEXTROSE 5% 50 ML IV SCH ×4 (05:00→23:29)
--- NOTE | 2019-04-21 05:00 | NUR ---
PT C/O HEADACHE AND TYLENOL WAS GIVEN AND TOLERATED WELL. SCHEDULED MEDICATION ZOSYN GIVEN AND TOLERATED WELL. NO S/S OF RESPIRATORY DISTRESS OR DISCOMFORT NOTED AT THIS TIME. WILL CONTINUE TO MONITOR.
[2019-04-21] MEDS: BLOOD GLUCOSE MONITORING 1 DEV DEV FS SCH ×4 (06:57→20:28)
[2019-04-21] MEDS: INSULIN LISPRO SLIDING SCALE 100 UNITS/ML VIAL SUBQ PRN ×3 (07:00→17:31)
--- NOTE | 2019-04-21 07:00 | NUR ---
BLOOD GLUCOSE 186- INSULIN COVERAGE GIVEN AND TOLERATED WELL. NO S/S OF RESPIRATORY DISTRESS OR DISCOMFORT NOTED AT THIS TIME. WILL CONTINUE TO MONITOR.
--- NOTE | 2019-04-21 07:10 | NUR ---
RECEIVED BEDSIDE REPORT FROM MULTIMEDIA SERVICES MANAGER NURSE, PT IS AWAKE AND ALERT SITTING UP IN BED, NO S/S OF ANY ACUTE DISTRESS OR SOB. PT IS ON ROOM AIR. L FOOT IS WRAPPED WITH GAUZE AND MILENA WRAPS S/P TOE AMPUTATION ON 04/20. PT NOT C/O ANY PAIN AT THIS TIME. RUE PICC LINE IS NOTED, INFUSING NS 75 ML/HR. COMMODE AT BEDSIDE. CALL LIGHT WITHIN REACH, WILL CONTINUE TO MONITOR.
[2019-04-21 07:30] LABS: BASOPHILS % (AUTO) 0.4 % (0.0-2.0); EOSINOPHILS # (AUTO) 0.1 K/uL (0-0.4); EOSINOPHILS % (AUTO) 1.6 % (0.0-4.0); HEMATOCRIT 35.5 % (36-52); HEMOGLOBIN 11.6 g/dL (12.0-18.0); LYMPHOCYTES % (AUTO) 13.6 % (20.5-51.1); MEAN CORPUSCULAR HEMOGLOBIN 28 pg (27-31); MEAN CORPUSCULAR HGB CONC 33 g/dL (33-37); MEAN CORPUSCULAR VOLUME 86.5 fL (80-94); MONOCYTES # (AUTO) 0.6 K/uL (0.8-1.0); MONOCYTES % (AUTO) 8.2 % (1.7-9.3); NEUTROPHILS # (AUTO) 5.5 K/uL (1.8-7.7); NEUTROPHILS % (AUTO) 76.2 % (42.2-75.2); PLATELET COUNT (AUTO) 261 K/uL (140-450); RED CELL DISTRIBUTION WIDTH 13.9 % (11.6-13.7); WHITE BLOOD COUNT (AUTO) 7.2 K/uL (4.8-10.8)
[2019-04-21 07:32] LABS: ANION GAP 10.7 (8-16); CARBON DIOXIDE 27.3 mmol/L (21-32); CREATININE 1.1 mg/dL (0.7-1.3); MAGNESIUM 1.8 mg/dL (1.8-2.4); PHOSPHORUS 3.2 mg/dL (2.5-4.9)
[2019-04-21 08:00] VITALS: BP 160/79
[2019-04-21] MEDS: CHLORHEXADINE GLUC 2% CLOTH TP SCH (09:00)
[2019-04-21] MEDS: VANCOMYCIN 1,000 MG in DEXTROSE 5% 250 ML IV SCH ×2 (09:00→20:25)
[2019-04-21] MEDS ORDERED: LISINOPRIL 20 MG TAB PO SCH (09:00)
[2019-04-21] MEDS: LACTOBACILLUS RHAMNOSUS GG 1 EACH CAP PO SCH (09:01)
[2019-04-21] MEDS: metFORMIN 500 MG TAB PO SCH ×2 (09:01→20:29)
[2019-04-21] MEDS: ASPIRIN 81 MG TAB.CHEW PO SCH (09:02)
[2019-04-21] MEDS: INSULIN LANTUS 100 UNITS/ML 10 ML VIAL SUBQ SCH (09:06)
--- NOTE | 2019-04-21 09:23 | NUR ---
AM MEDS ADMINISTERED, PT REFUSED THE LISINOPRIL, STATES THAT IT HAS NOT "DONE ANYTHING" TO LOWER HIS BP. PT WANTS TO TALK WITH MD BEFORE TAKING THE AM DOSE OF LISINOPRIL. WILL NOTIFY .
--- NOTE | 2019-04-21 10:58 | NUR ---
DR HEWITT SEEING PT AT THIS TIME
--- NOTE | 2019-04-21 14:00 | NUR ---
CALLED [facility] [phone] AND FAXED ALL THE REQUEST TO [phone] SPOKE WITH SCOW CAPTAIN WILL REVIEW THE PAPER WORK AND WILL CALL BACK
--- NOTE | 2019-04-21 14:16 | NUR ---
PHYSICAL THERAPIST ATTEMPTING TO WALK WITH PATIENT, PT IS REFUSING TO WALK WITH A WALKER, ASKING INSTEAD FOR CRUTCHES. PHYSICAL THERAPIST IS RECOMMENDING CRUTCHES AND ASKING MD TO ORDER CRUTCHES FOR PT. Addendum: 04/21/19 at 1422 by Francisca Parnell RN I TALKED TO DR HEWITT ABOUT RECOMMENDATION FOR CRUTCHES FOR PT.
[2019-04-21 16:00] VITALS: BP 144/69
--- NOTE | 2019-04-21 16:42 | NUR ---
SPOKE WITH PHAN FROM [facility] NOTIFIED THAT PT HAS MICHAEL WITH PODIATRY ON 04/27/19 AND CARE CAN BE CONTINUE ON THE 04/28/19
--- NOTE | 2019-04-21 17:12 | NUR ---
ASSISTED PT TO AMBULATE TO THE BATHROOM WITH THE BOOT ON, HEEL-TOUCH ON HIS L FOOT. PT EXHIBITED A STEADY GAIT.
--- NOTE | 2019-04-21 19:15 | NUR ---
ENDORSED PT TO INSTRUCTOR HAIRSPRING NURSE IN STABLE CONDITION.
--- NOTE | 2019-04-21 19:20 | NUR ---
ENDORSED PT TO SALES REPRESENTATIVE METALS NURSE IN STABLE CONDITION.
--- NOTE | 2019-04-21 19:21 | NUR ---
RECEIVED REPORT FROM DAY SHIFT NURSE JUVENCIO-RN AT BEDSIDE. PT RESTING IN BED, AOX4, ON ROOM AIR WITH PICC RIGHT UPPER ARM RUNNING NS @75ML/HR. DISCUSSED PLAN OF CARE AND PT VERBALIZED UNDERSTANDING. NO S/S OF RESPIRATORY DISTRESS OR DISCOMFORT NOTED AT THIS TIME. S/P DEBRIDEMENT 04/17 AND AMPUTATION OF FIRST DIGIT AND PARTIAL OF THIRD DIGIT BY DR. OSORIO ON 04/20. BED IN LOWEST POSITION, BED BREAKS ON, BOTH SIDE RAILS UP AND FALL PRECAUTIONS IN PLACE. BEDSIDE TABLE AND CALL LIGHT ARE WITHIN REACH. WILL CONTINUE TO MONITOR.
[2019-04-21 20:00] VITALS: BP 133/62
--- NOTE | 2019-04-21 20:00 | NUR ---
VITAL SIGNS TAKEN AND TOLERATED WELL. LOW BP NOTED. BLOOD GLUCOSE 140- NO INSULIN COVERAGE NEEDED. NO S/S OF RESPIRATORY DISTRESS OR DISCOMFORT NOTED AT THIS TIME. WILL CONTINUE TO MONITOR.
[2019-04-21] MEDS: ATORVASTATIN 20 MG TAB PO SCH (20:29)
--- NOTE | 2019-04-21 20:43 | NUR ---
SCHEDULED MEDICATIONS GIVEN AND TOLERATED WELL. NO S/S OF RESPIRATORY DISTRESS OR DISCOMFORT NOTED AT THIS TIME. WILL CONTINUE TO MONITOR.
--- NOTE | 2019-04-21 22:00 | NUR ---
PT RESTING IN BED. NO S/S OF RESPIRATORY DISTRESS OR DISCOMFORT NOTED AT THIS TIME. WILL CONTINUE TO MONITOR.
--- NOTE | 2019-04-21 23:29 | NUR ---
SCHEDULED MEDICATION ZOSYN GIVEN AND TOLERATED WELL. NO S/S OF RESPIRATORY DISTRESS OR DISCOMFORT NOTED AT THIS TIME. WILL CONTINUE TO MONITOR.
[2019-04-22] VITALS: BP 122/64
--- NOTE | 2019-04-22 | NUR ---
VITAL SIGNS TAKEN AND TOLERATED WELL. NO S/S OF RESPIRATORY DISTRESS OR DISCOMFORT NOTED AT THIS TIME. WILL CONTINUE TO MONITOR.
--- NOTE | 2019-04-22 02:00 | NUR ---
PT SLEEPING IN BED. NO S/S OF RESPIRATORY DISTRESS OR DISCOMFORT NOTED AT THIS TIME. WILL CONTINUE TO MONITOR.
--- NOTE | 2019-04-22 04:00 | NUR ---
PT CONTINUES SLEEPING IN BED. NO S/S OF RESPIRATORY DISTRESS OR DISCOMFORT NOTED AT THIS TIME. WILL CONTINUE TO MONITOR.
[2019-04-22] MEDS: PIPERACILLIN/TAZOBACTAM 3.375 GM in DEXTROSE 5% 50 ML IV SCH (05:37)
--- NOTE | 2019-04-22 05:37 | NUR ---
SCHEDULED MEDICATION ZOSYN GIVEN AND TOLERATED WELL. NO S/S OF RESPIRATORY DISTRESS OR DISCOMFORT NOTED AT THIS TIME. WILL CONTINUE TO MONITOR.
--- NOTE | 2019-04-22 06:00 | NUR ---
BLOOD GLUCOSE 115- NO INSULIN COVERAGE NEEDED. NO S/S OF RESPIRATORY DISTRESS OR DISCOMFORT NOTED AT THIS TIME. WILL CONTINUE TO MONITOR.
[2019-04-22] MEDS: NACL 0.9% 1,000 ML IV SCH (06:17)
[2019-04-22] MEDS: BLOOD GLUCOSE MONITORING 1 DEV DEV FS SCH (06:17)
[2019-04-22 06:43] LABS: BASOPHILS % (AUTO) 0.2 % (0.0-2.0); EOSINOPHILS # (AUTO) 0.1 K/uL (0-0.4); EOSINOPHILS % (AUTO) 1.8 % (0.0-4.0); HEMATOCRIT 33.7 % (36-52); HEMOGLOBIN 10.9 g/dL (12.0-18.0); LYMPHOCYTES % (AUTO) 13.2 % (20.5-51.1); MEAN CORPUSCULAR HEMOGLOBIN 28 pg (27-31); MEAN CORPUSCULAR HGB CONC 32 g/dL (33-37); MEAN CORPUSCULAR VOLUME 86.4 fL (80-94); MONOCYTES # (AUTO) 0.7 K/uL (0.8-1.0); MONOCYTES % (AUTO) 8.8 % (1.7-9.3); PLATELET COUNT (AUTO) 268 K/uL (140-450); RED CELL DISTRIBUTION WIDTH 13.5 % (11.6-13.7); WHITE BLOOD COUNT (AUTO) 7.9 K/uL (4.8-10.8)
[2019-04-22 07:10] LABS: MAGNESIUM 1.7 mg/dL (1.8-2.4); PHOSPHORUS 3.1 mg/dL (2.5-4.9)
--- NOTE | 2019-04-22 07:20 | NUR ---
RECEIVED [facility]ITICAL [facility] VAL[facility] 23.[address] DR[address] ONEIL IS AWARE AND NO NEW ORDERS AT THIS TIME.
--- NOTE | 2019-04-22 07:20 | NUR ---
RECEIVED BEDSIDE REPORT FROM NIGHT NURSE. PT IS ASLEEP, NO S/S OF ACUTE DISTRESS NOTED. PT IS ON ROOM AIR. L FOOT IS WRAPPED IN SURGICAL DRESSING S/P TOE AMPUTATION. PICC LINE IS ON THE RUE INFUSING NS 75 ML/HR. CALL LIGHT IS WITHIN REACH, COMMODE AT BEDSIDE. FALL PRECAUTIONS IN PLACE. WILL CONTINUE TO MONITOR.
[2019-04-22 07:36] LABS: CARBON DIOXIDE 29.8 mmol/L (21-32); CREATININE 1.3 mg/dL (0.7-1.3); POTASSIUM 3.8 mmol/L (3.5-5.1)
[2019-04-22 08:00] VITALS: BP 159/67
[2019-04-22] MEDS ORDERED: LISI10TA11 PO (08:51)
[2019-04-22] MEDS ORDERED: INUL1CTB PO (08:51)
[2019-04-22] MEDS ORDERED: INSU100S22 SUBQ (08:51)
[2019-04-22] MEDS ORDERED: CLIN300C2 PO (08:51)
[2019-04-22] MEDS ORDERED: SITA100T8 PO (08:53)
[2019-04-22] MEDS ORDERED: LISINOPRIL 20 MG TAB PO SCH (09:00)
[2019-04-22] MEDS: LACTOBACILLUS RHAMNOSUS GG 1 EACH CAP PO SCH (09:28)
[2019-04-22] MEDS: metFORMIN 500 MG TAB PO SCH (09:29)
[2019-04-22] MEDS: ASPIRIN 81 MG TAB.CHEW PO SCH (09:30)
[2019-04-22] MEDS: INSULIN LANTUS 100 UNITS/ML 10 ML VIAL SUBQ SCH (09:32)
[2019-04-22] MEDS ORDERED: MAGNESIUM OXIDE 400 MG TAB PO SCH (11:00)
--- NOTE | 2019-04-22 12:00 | NUR ---
CONTACTED [facility], SPOKE WITH MITALI-[employer]OCAL MUSIC INSTRUCTOR, STATED THAT SHE IS AWARE PT WILL BE SEEN AFTER HIS MANAGER PROVIDER RELATIONS APPT ON 04/27/2019. JUVENCIO-BILLY ASSIGNED MADE AWARE WELL.
--- NOTE | 2019-04-22 12:00 | NUR ---
PT HAS DISCHARGED. PT IS AWARE OF HIS FOLLOW UP APPOINTMENTS AND THAT HOME HEALTH WOUND CARE WILL BE CONTINUED AFTER HIS F/U APPT WITH VICE PRESIDENT FOR PHILANTHROPY ON 04/27. PT IS AWARE OF THE PRESCRIPTIONS HE NEEDS TO CHECKOUT SUPERVISOR FROM PHARMACY. CRUTCHES WERE PROVIDED TO PT. PICC LINE WAS REMOVED, WRIST BANDS OFF. PT LEFT WITH ALL HIS BELONGINGS IN STABLE CONDITION, DRIVEN BY HIS DAUGHTER.
== END 2019-04-22 12:00 | disposition home health service (06) | DRG 616 ==
LOC: MED 00:42 → MTU 04:29
PROVIDERS: ADMIT General Practice; ATTEND General Practice
PROC: 0JBR0ZZ Excision of Left Foot Subcutaneous Tissue and Fascia, Open Approach (ICD-10-PCS; principal; 2019-04-17)
PROC: 0J9R0ZZ Drainage of Left Foot Subcutaneous Tissue and Fascia, Open Approach (ICD-10-PCS; 2019-04-17)
PROC: 0J9R0ZZ Drainage of Left Foot Subcutaneous Tissue and Fascia, Open Approach (ICD-10-PCS; 2019-04-17)
PROC: 0Y6Q0Z1 Detachment at Left 1st Toe, High, Open Approach (ICD-10-PCS; 2019-04-20)
PROC: 0Y6U0Z1 Detachment at Left 3rd Toe, High, Open Approach (ICD-10-PCS; 2019-04-20)
DX: E11.69 Type 2 diabetes mellitus with other specified complication (principal); E43 Unspecified severe protein-calorie malnutrition; M86.172 Other acute osteomyelitis, left ankle and foot; E87.1 Hypo-osmolality and hyponatremia; L02.612 Cutaneous abscess of left foot; N17.0 Acute kidney failure with tubular necrosis; E11.51 Type 2 diabetes mellitus with diabetic peripheral angiopathy without gangrene; E11.621 Type 2 diabetes mellitus with foot ulcer; L97.529 Non-pressure chronic ulcer of other part of left foot with unspecified severity; Z68.26 Body mass index [BMI] 26.0-26.9, adult; I10 Essential (primary) hypertension; Z87.891 Personal history of nicotine dependence; E78.5 Hyperlipidemia, unspecified; E83.42 Hypomagnesemia; D64.9 Anemia, unspecified; Z87.442 Personal history of urinary calculi; L03.032 Cellulitis of left toe
CPT/HCPCS: 36415; 71045; 73630; 78315; 80048; 80053; 80202; 80305; 81001; 82150; 82948; 83036; 83605; 83690; 83735; 83880; 84100; 84134; 84436; 84443; 84484; 85025; 85610; 85651; 85730; 86140; 87040; 87070; 87075; 87081; 87086; 87186; 87205; 93005; 93925; 93970; 96372; 97161-GP; 99284; A9503; C1751; J1644; J1815; J2250; J2543; J2704; J3010; J3370; J3490; J7030; J7042; J7060; Q0092; Q0163

== ENCOUNTER 2019-04-22 20:07 | Emergency (ER) | payer OTHER ==
[~2019-04-22] VITALS: Ht 172.7 cm; Wt 78.9 kg
[~2019-04-22 20:07] MED LIST changes: +CLIN300C2 PO; +INSU100S22 SUBQ; +INUL1CTB PO; +LISI10TA11 PO; +METF500T PO; +SITA100T8 PO
[2019-04-22 20:20] VITALS: BP 156/87
[2019-04-22 22:26] VITALS: BP 166/83
== END 2019-04-22 22:20 | disposition home or self-care (01) ==
LOC: MED 20:07
DX: M96.830 Postprocedural hemorrhage of a musculoskeletal structure following a musculoskeletal system procedure (principal); E11.9 Type 2 diabetes mellitus without complications; I10 Essential (primary) hypertension; Z89.422 Acquired absence of other left toe(s); Z87.442 Personal history of urinary calculi; Z98.890 Other specified postprocedural states; Z79.4 Long term (current) use of insulin; Z79.899 Other long term (current) drug therapy; Y92.89 Other specified places as the place of occurrence of the external cause; Y83.5 Amputation of limb(s) as the cause of abnormal reaction of the patient, or of later complication, without mention of misadventure at the time of the procedure
CPT/HCPCS: 82948; 99283